=== PATIENT | female | born 1945 ===

== ENCOUNTER → 2019-12-22 | Outpatient (CLI) | payer MEDICARE, BC | END | disposition home or self-care (01) | LOC: RAD 09:58 | PROVIDERS: ATTEND Internal Medicine Hematology & Oncology | DX: Z45.2 Encounter for adjustment and management of vascular access device (principal); C50.919 Malignant neoplasm of unspecified site of unspecified female breast | CPT/HCPCS: 36573; C1751 ==

== ENCOUNTER → 2020-08-16 | Outpatient (CLI) | payer MEDICARE, BC | END | disposition home or self-care (01) | LOC: RAD 08:18 | PROVIDERS: ATTEND Homeopath | DX: C50.919 Malignant neoplasm of unspecified site of unspecified female breast (principal) | CPT/HCPCS: 36573; C1751 ==

== ENCOUNTER → 2020-10-04 | Outpatient (CLI) | payer MEDICARE, BC | END | disposition home or self-care (01) | LOC: RAD 09:51 | PROVIDERS: ATTEND Homeopath | DX: C50.919 Malignant neoplasm of unspecified site of unspecified female breast (principal) | CPT/HCPCS: 36573; C1751 ==

== ENCOUNTER 2021-03-04 13:05 | Outpatient (CLI) | payer MEDICARE, BC | END 2021-03-04 23:59 | disposition home or self-care (01) | LOC: RAD 13:05 | PROVIDERS: ATTEND Homeopath | DX: Z02.9 Encounter for administrative examinations, unspecified (principal) ==

== ENCOUNTER 2021-03-07 15:31 | Outpatient (CLI) | payer MEDICARE, BC ==
[2021-03-07] MEDS ORDERED: GADOTERATE 10 MMOL/20 ML VIAL ONE (18:32)
== END 2021-03-07 23:59 | disposition home or self-care (01) ==
LOC: RAD 15:31
PROVIDERS: ATTEND Homeopath
DX: C50.919 Malignant neoplasm of unspecified site of unspecified female breast (principal); M51.37 Other intervertebral disc degeneration, lumbosacral region; M50.31 Other cervical disc degeneration, high cervical region; M48.54XA Collapsed vertebra, not elsewhere classified, thoracic region, initial encounter for fracture; Z51.11 Encounter for antineoplastic chemotherapy; Z90.710 Acquired absence of both cervix and uterus
CPT/HCPCS: 72156; 72157; 72158; 72197; A9575